=== PATIENT | male | born 2000 | race Caucasian/White ===

== ENCOUNTER 2018-07-17 23:05 | Emergency (ER) | payer MEDICAID ==
[~2018-07-17] VITALS: Ht 172.7 cm; Wt 62.8 kg
[2018-07-17 23:45] LABS: BASOPHILS # (AUTO) 0.09 x10^3/uL (0-0.3); BASOPHILS % (AUTO) 1 % (0-1); EOSINOPHILS # (AUTO) 0.09 x10^3/uL (0-0.8); EOSINOPHILS % (AUTO) 1 % (1-7); LYMPHOCYTES # (AUTO) 3.99 x10^3/uL (1-6.1); LYMPHOCYTES % (AUTO) 39 % (22-44); MD NO; MEAN CORPUSCULAR HEMOGLOBIN 30.7 pg (27.5-34.5); MEAN CORPUSCULAR HGB CONC 33.9 g/dL (33.2-36.2); MEAN CORPUSCULAR VOLUME 90.8 fL (81-97); MEAN PLATELET VOLUME 8.2 fL (7.4-10.4); MONOCYTES # (AUTO) 0.86 x10^3/uL (0-1.4); MONOCYTES % (AUTO) 8 % (2-9); NEUTROPHILS # (AUTO) 5.19 x10^3/uL (1.8-8.0); NEUTROPHILS % (AUTO) 51 % (42-75); PLATELET COUNT 275 x10^3/uL (130-400); RED BLOOD COUNT 4.96 x10^6/uL (4.38-5.82); RED CELL DISTRIBUTION WIDTH 13.5 % (9.4-14.8)
[2018-07-17 23:57] LABS: ALANINE AMINOTRANSFERASE 26 U/L (12-78); ALBUMIN 3.7 g/dL (3.4-5.0); ANION GAP 7 mmol/L (5-15); CHLORIDE 108 mmol/L (98-107); CREATININE 0.96 mg/dL (0.7-1.3)
[2018-07-17 23:59] LABS: ALKALINE PHOSPHATASE 74 U/L (45-117); BILIRUBIN,TOTAL 2.1 mg/dL (0.2-1.0); TOTAL PROTEIN 7.2 g/dL (6.4-8.2)
[2018-07-18 00:42] VITALS: BP 120/78
== END 2018-07-18 01:21 | disposition home or self-care (01) ==
LOC: EDSEX 23:05 → ED 07-18 00:52
DX: B34.9 Viral infection, unspecified (principal); R05 Cough; F17.200 Nicotine dependence, unspecified, uncomplicated
CPT/HCPCS: 36415; 71046; 80053; 83690; 85025; 99285